=== PATIENT | female | born 1965 | race Caucasian/White ===

== ENCOUNTER 2016-04-01 15:18 | Emergency (ER) | payer OTHER ==
[~2016-04-01] VITALS: Ht 162.6 cm; Wt 78.9 kg
[~2016-04-01 15:18] MED LIST: ALPRAZOLAM1 MG PO; ATIVAN1 MG PO; BACTRIM DS TAB1 EACH PO; FLONASE120 SPRAY/ INH; IBUPROFEN800 M1 PO; MOTRIN800 MG PO; SYNTHROID137 MCG PO; SYNTHROID150 MCG PO
[2016-04-01 15:25] VITALS: BP 142/74
--- NOTE | 2016-04-01 16:03 | RADIOLOGY REPORT ---
EXAMINATION: XR ANKLE, LEFT CLINICAL INFORMATION: Pain after a fall COMPARISON: None TECHNIQUE: AP, lateral, and mortise views of the left ankle. FINDINGS: The bones and soft tissues are normal. No fracture. Alignment is anatomic. Joint spaces are maintained. No joint effusion. IMPRESSION: Normal left ankle.
--- NOTE | 2016-04-01 16:29 | ED ANKLE/FOOT INJURY COMPLAINT ---
History of Present Illness General Chief Complaint: Lower Extremity Problems Stated Complaint: LEFT LEG PAIN Source: patient Exam Limitations: no limitations Vital Signs & Intake/Output Vital Signs & Intake/Output Vital Signs Date Time Temp Pulse Resp B/P Pulse O2 O2 Flow FiO2 Ox Delivery Rate 04/01 1655 Room Air Room Air 04/01 1525 96.9 124 18 142/74 100 Room Air Allergies Coded Allergies: sulfamethoxazole (From BACTRIM) (FLU LIKE SYMPTOMS 04/01/16) trimethoprim (From BACTRIM) (FLU LIKE SYMPTOMS 04/01/16) Reconcile Medications Alprazolam 1 MG TABLET 1 TAB PO 4 TIMES/DAY PRN ANXIETY (Reported) Aspirin (Ecotrin*) 81 MG TABLET.DR 1 TAB PO 2XW HEART/BLOOD (Reported) Bupropion HCl (Wellbutrin XL) 300 MG TAB.ER.24H 1 TAB PO QAM DEPRESSION ( Reported) Cefadroxil 500 MG CAPSULE 1 CAP PO BID ANTIBIOTIC (Reported) Levothyroxine Sodium 150 MCG TABLET 1 TAB PO AD THYROID (Reported) Levothyroxine Sodium (Synthroid) 137 MCG TABLET 1 TAB PO AD THYROID (Reported ) Meloxicam (Unknown Strength) TABLET (Unknown Dose) UNKNOWN (Reported) Norethindrone-E.estradiol-Iron (Microgestin Fe 1-20 Tablet) 1 MG-20 MCG (21)/75 MG (7) TABLET 1 TAB PO DAILY CONTROL (Reported) Pantoprazole Sodium 40 MG TABLET.DR 1 TAB PO DAILY GI (Reported) Triamterene/Hydrochlorothiazid (Triamterene-Hctz 37.5-25 MG Cp) (Unknown Strength) CAPSULE (Unknown Dose) UNKNOWN (Reported) Triage Note: PT TO ED "TO GET AN XRAY OF MY TENDON" AFTER A FALL LAST FRIDAY. 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 PT REPORTING SHE BELIEVES SHE SPRAINED HER L ANKLE LAST WEEK AFTER SHE LOST HER BALANCE. DENIES ANY DIZZINESS. Triage Nurses Notes Reviewed? yes Duration: day(s): (4), constant, continues in ED Timing: recent history Severity: moderate, severe Pain/Injury Location: Left: Foot, Ankle. No Modifying Factors: none HPI: 42-year-old female comes into emergency room with complaints of left foot and ankle pain is been going on for the past 4-5 days. Patient reports that she twisted it when she was leaving the gas station. Some swelling. Sharp throbbing pain. Continuous. Nonradiating. Denies any injury any other associated symptoms. (GENESIS RIVAS) Past History Travel History Traveled to [place] past 21 day No Medical History Any Pertinent Medical History? see below for history Neurological: NONE EENT: sinusitis Cardiovascular: NONE Respiratory: NONE Gastrointestinal: GERD Hepatic: NONE Renal: NONE Musculoskeletal: fracture, RIB FX Psychiatric: anxiety, depression, PTSD Endocrine: Barrie's thyroiditis, hypothyroidism Blood Disorders: NONE Cancer(s): NONE ACTIVITIES SPECIALIST/Reproductive: miscarriage, yeast infections Surgical History Surgical History: THYROID Psychosocial History What is your primary language Nigerien Tobacco Use: Never used ETOH Use: occasional use Illicit Drug Use: denies illicit drug use Family History Hx Contributory? No (GENESIS RIVAS) Review of Systems Review of Systems Constitutional: Reports: no symptoms. EENTM: Reports: no symptoms. Respiratory: Reports: no symptoms. Cardiovascular: Reports: no symptoms. GI: Reports: no symptoms. Genitourinary: Reports: no symptoms. Musculoskeletal: Reports: see HPI. Skin: Reports: no symptoms. Neurological/Psychological: Reports: no symptoms. Hematologic/Endocrine: Reports: no symptoms. Immunologic/Allergic: Reports: no symptoms. All Other Systems: Reviewed and Negative (GENESIS RIVAS) Physical Exam Physical Exam General Appearance: well developed/nourished, mild distress Head: atraumatic Eyes: Bilateral: normal appearance. Ears, Nose, Throat: normal pharynx, normal ENT inspection Neck: normal inspection Cardiovascular/Respiratory: no respiratory distress Back: normal inspection Leg/Knee/Thigh Left: normal inspection Ankle Left: ecchymosis, soft tissue tenderness, swelling Foot Left: normal inspection, normal range of motion Neuro/Vascular: normal motor function, normal sensation Psychiatric: awake, alert, oriented x 3 Skin: intact, normal color, warm/dry (GENESIS RIVAS) Progress Differential Diagnosis: cellulitis, gout, fracture, dislocation, sprain Plan of Care: Orders Procedure Date/time Status Durable Medical Equipment 04/01 1743 Active Durable Medical Equipment 04/01 1733 Active Diagnostic Imaging: Viewed by Me: Radiology Read. Discussed w/RAD: Radiology Read. Radiology Impression: SERVICE DATE: 04/01/16-162 EXAM TYPE: RAD - XRY-FOOT COMPLETE, LEFT EXAMINATION: XR FOOT, LEFT CLINICAL INFORMATION: Evaluate for for fracture. Pain and swelling COMPARISON: None TECHNIQUE: AP, lateral, and oblique views of the left foot. FINDINGS: Normal bony mineralization. Subtle subcortical lucency noted in the distal lateral calcaneus may represent subtle erosion or subcortical cyst formation. No acute fracture lines appreciated. Mild soft tissue swelling. IMPRESSION: Subtle cortical erosion or subcortical cystic change noted in the distal lateral calcaneus. No acute fracture or dislocation. Mild soft tissue swelling. DICTATED BY: REBEKAH RODRÍGUEZ MD DATE/TIME DICTATED:1716, SERVICE DATE: 04/01/16 EXAM TYPE: US - US-EXT BILAT VENOUS DOPPLER EXAMINATION: BILATERAL TRIPLEX SCANNING OF THE LOWER EXTREMITIES CLINICAL INFORMATION: Lower extremity swelling. COMPARISON: None. TECHNIQUE: Color-flow triplex imaging with spectral analysis and compression Doppler were performed on the lower extremities. FINDINGS: Respiratory variation, normal compression and augmented flow are noted throughout the lower extremities. The visualized common femoral vein, superficial femoral vein, profunda femoral vein, popliteal vein and mid calf peroneal and posterior tibial venous segments show no evidence of deep venous thrombosis. There is no Chi's cyst. IMPRESSION: Normal triplex scan without evidence of deep venous thrombosis involving the lower extremities. DICTATED BY: ANNELIESE MANUEL MD DATE/TIME DICTATED:1654 KEY ACCOUNT DIRECTOR:DENIS DATE/TIME TRANSCRIBED:04/01/161654, EXAM TYPE: RAD - XRY-ANKLE 3 OR MORE VIEWS L EXAMINATION: XR ANKLE, LEFT CLINICAL INFORMATION: Pain after a fall COMPARISON: None TECHNIQUE: AP, lateral, and mortise views of the left ankle. FINDINGS: The bones and soft tissues are normal. No fracture. Alignment is anatomic. Joint spaces are maintained. No joint effusion. IMPRESSION: Normal left ankle. DICTATED BY: ANNELIESE MANUEL MD DATE/TIME DICTATED:04/01/161557 KEY ACCOUNT DIRECTOR:DENIS DATE/TIME TRANSCRIBED:04/01/161557 CONFIDENTIAL, DO NOT COPY WITHOUT APPROPRIATE AUTHORIZATION. <Electronically signed in Other Vendor System> SIGNED BY: ANNELIESE MANUEL MD 04/01/16 0191 (GENESIS RIVAS) Departure Departure Disposition: HOME OR SELF CARE Condition: Stable Clinical Impression Primary Impression: Left ankle sprain Referrals: SINGER ARGUETA,KELLY (PCP/Family) Additional Instructions: Ice. Rest. Motrin for pain. Elevation. Follow-up with orthopedic doctor provided if not better in 3-5 days. If symptoms do not improve you'll require further evaluation with possible repeat x-rays as well as evaluation by customer engineering specialist. Sprains can last anywhere from days to weeks. No high impact running or jumping if you have an ankle sprain or any type of lower extremity sprain. Return to normal activity only after symptoms have resolved. Departure Forms: Customer Survey General Discharge Information (GENESIS RIVAS) PA/DUCT LAYER SUPERVISOR Co-Sign Statement Statement: ED Attending supervision documentation- [] I saw and evaluated the patient. I have also reviewed all the pertinent lab results and diagnostic results. I agree with the findings and the plan of care as documented in the PA's/DUCT LAYER SUPERVISOR's documentation. [x] I have reviewed the ED Record and agree with the PA's/DUCT LAYER SUPERVISOR's documentation. [] Additions or exceptions (if any) to the PAs/DUCT LAYER SUPERVISOR's note and plan are summarized below: [] (KIRSTY GILMORE DO) Procedures Splinting Location: LEFT FOOT/ANKLE Manual Alignment Performed: No Splint Applied By: splint applied by me Pre-Proc Neuro Vasc Exam: normal Post-Proc Neuro Vasc Exam: normal (GENESIS RIVAS)
--- NOTE | 2016-04-01 16:59 | ULTRASOUND REPORT ---
EXAMINATION: BILATERAL TRIPLEX SCANNING OF THE LOWER EXTREMITIES CLINICAL INFORMATION: Lower extremity swelling. COMPARISON: None. TECHNIQUE: Color-flow triplex imaging with spectral analysis and compression Doppler were performed on the lower extremities. FINDINGS: Respiratory variation, normal compression and augmented flow are noted throughout the lower extremities. The visualized common femoral vein, superficial femoral vein, profunda femoral vein, popliteal vein and mid calf peroneal and posterior tibial venous segments show no evidence of deep venous thrombosis. There is no Chi's cyst. IMPRESSION: Normal triplex scan without evidence of deep venous thrombosis involving the lower extremities.
--- NOTE | 2016-04-01 17:29 | RADIOLOGY REPORT ---
EXAMINATION: XR FOOT, LEFT CLINICAL INFORMATION: Evaluate for for fracture. Pain and swelling COMPARISON: None TECHNIQUE: AP, lateral, and oblique views of the left foot. FINDINGS: Normal bony mineralization. Subtle subcortical lucency noted in the distal lateral calcaneus may represent subtle erosion or subcortical cyst formation. No acute fracture lines appreciated. Mild soft tissue swelling. IMPRESSION: Subtle cortical erosion or subcortical cystic change noted in the distal lateral calcaneus. No acute fracture or dislocation. Mild soft tissue swelling.
[2016-04-01] MEDS ORDERED: ALPRAZOLAM1 M2 PO (17:42)
[2016-04-01] MEDS ORDERED: TRIAMTERENE-HC1 EAC3 (17:42)
[2016-04-01] MEDS ORDERED: CEFADROXIL500 M1 PO (17:43)
[2016-04-01] MEDS ORDERED: PANTOPRAZOLE SO40 M1 PO (17:45)
[2016-04-01] MEDS ORDERED: MELOXICAM15 M1 (17:45)
[2016-04-01] MEDS ORDERED: LEVOTHYROXINE150 MCG PO (17:47)
[2016-04-01] MEDS ORDERED: WELLBUTRIN XL300 M2 PO (17:47)
[2016-04-01] MEDS ORDERED: SYNTHROID137 MCG PO (17:48)
[2016-04-01] MEDS ORDERED: MICROGESTIN FE1 EAC1 PO (17:49)
[2016-04-01] MEDS ORDERED: ASPIRIN EC81 M1 PO (17:50)
== END 2016-04-01 18:07 ==
LOC: ERH 15:18
DX: S93.402A Sprain of unspecified ligament of left ankle, initial encounter (principal); X50.9XXA Other and unspecified overexertion or strenuous movements or postures, initial encounter; Y92.524 Gas station as the place of occurrence of the external cause
CPT/HCPCS: 73610-LT; 73630-LT; 93970